=== PATIENT | female | born 1950 | race Caucasian/White ===

== ENCOUNTER → 2021-11-26 | Outpatient (CLI) | payer MEDICARE, SELFPAY ==
[2021-11-26 14:36] LABS: Erythrocyte Sedimentation Rate 24 mm/hr (0-30)
[2021-11-26 14:38] LABS: Absolute Lymphocyte Count 2.96 X10^3/uL (0.83-4.51); Absolute Neutrophil Count 5.4 X10^3/uL (2.0-7.7); Eosinophil# 0.33 X10^3/uL; Eosinophils% 3.4 % (0-5); Hematocrit 40.5 % (37-47); Hemoglobin 13.6 g/dL (12.0-15.0); Lymphocyte # 2.96 X10^3/ul (0.83-4.51); Lymphocyte % 30.8 % (19-41); Mean Corp Hgb Conc 33.6 g/dL (32-36); Mean Corpuscular Hgb 28.6 pg (27.0-32.0); Mean Corpuscular Volume 85.1 fL (81-99); Mean Platelet Vol. 12.3 fl (6.2-12.0); Monocyte# 0.77 X10^3/uL; NRBC Flagged by Analyzer 0 % (0-5); Neutrophil # 5.42 X10^3/uL (2.7-7.7); Neutrophil % 56.6 % (47-70); Platelet Count 249 K/mm3 (150-450); RBC Distribution Width CV 14.8 % (11.6-14.6); Red Blood Count 4.76 M/mm3 (4.2-5.4); White Blood Count 9.6 K/mm3 (4.4-11.0)
[2021-11-26 15:12] LABS: AST(SGOT) 22 U/L (15-37); Alanine Aminotransfer ALT/SGPT 31 U/L (13-56); Albumin, Serum 3.9 g/dL (3.2-5.0); Alkaline Phosphatase 107 U/L (45-117); Anion Gap 5 (5-15); BUN 16 mg/dL (7-18); BUN/Creat Ratio 20.5 RATIO (10-20); CRP < 2.90 mg/L (0.0-3.0); Calcium,Total 9.4 mg/dL (8.5-10.1); Chloride 107 mmol/L (98-107); Creatinine, Serum 0.78 mg/dL (0.55-1.02); EST Glomerular Filtration Rate 78 mL/min (>60); Est Glom Filt Rate - Afr Amer 94 mL/min (>60); Free T3 2.9 pg/mL (2.18-3.98); Glucose 106 mg/dL (74-106); LDH 192 U/L (84-246); Potassium 3.2 mmol/L (3.5-5.1); Protein, Total 7.9 g/dL (6.4-8.2); Sodium Level 141 mmol/L (136-145)
[2021-11-29 13:07] LABS: Anti-Centromere B Ab <0.2 AI (0.0-0.9); Anti-Chromatin <0.2 AI (0.0-0.9); Anti-Jo <0.2 AI (0.0-0.9); Anti-Scleroderma-70 AB <0.2 AI (0.0-0.9); RNP Ab <0.2 AI (0.0-0.9); SJOGREN'S Anti-SS-A test < 0.2 AI (0.0-0.9); SJOGREN'S Anti-SS-B test < 0.2 AI (0.0-0.9); Smith Ab <0.2 AI (0.0-0.9)
[2021-11-30 08:04] LABS: Anti-dsDNA Ab <1 IU/mL (0-9)
[2021-11-30 09:08] LABS: Endomysial Antibody IgA Negative (Negative)
[2021-11-30 09:21] LABS: Immunoglobulin A 210 mg/dL (87-352); t-Transglutaminase IgA <2 U/mL (0-3)
[2021-12-02 18:07] LABS: Albumin 4.2 g/dL (2.9-4.4); Alpha-1-Globulins 0.2 g/dL (0.0-0.4); Alpha-2-Globulins 0.9 g/dL (0.4-1.0); Cytoplasmic Ab (C-ANCA) <1:20 titer (Neg:<1:20); Gamma Globulin 0.8 g/dL (0.4-1.8); Immunoglobulin A 205 mg/dL (87-352); Immunoglobulin E 7 IU/mL (6-495); Immunoglobulin G 810 mg/dL (586-1602); Immunoglobulin M 142 mg/dL (26-217); PROEL- TOTAL PROTEIN 7.3 g/dL (6.0-8.5)
[2021-12-03 17:50] LABS: Perinuclear Ab (P-ANCA) <1:20 titer (Neg:<1:20)
== END | disposition home or self-care (01) ==
PROVIDERS: PCP Student in an Organized Health Care Education/Training Program; Referring Provider Internal Medicine Gastroenterology; Visit Provider Internal Medicine Gastroenterology
DX: R05.9 Cough, unspecified (principal)
CPT/HCPCS: 36415; 80053; 82784; 82785; 83516; 83615; 84165; 84481; 85025; 85652; 86140; 86225; 86235; 86255; 86256; 86334

== ENCOUNTER 2021-12-09 09:54 | Day surgery (SDC) | payer MEDICARE, SELFPAY ==
[2021-12-09] VITALS (8 sets, daily range): BP systolic 99–123; BP diastolic 56–66; PULSE 67–76; RESP 16–18; TEMP 36.1–36.6; O2SAT 92–96; BMI 31.8
--- NOTE | 2021-12-09 10:12 | HP.PCM_ITS ---
History and Physical Date of Admission: 12/09/21 71 F who presents to the office today for Initial consult. Susannah established with this clinic 11.26.21 with referral from ENT. She was being seen for a usually dry, sometimes productive cough with hoarseness, hiatal hernia and a history of reflux. Susannah views the cough as most troublesome to her with cause of hernia and popped a rib. She was hospitalized for COVID and did not have any coughing; when she returned home she began coughing. PFT cannot be completed r/t cough. 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 Reports environmental allergy testing with mild response to horses only. Medication attempted include inhalers, nebulizer, GERD medications ?I?ve been on everything?. Currently taking protonix 40mg QD and famotidine 40mg QD. PMH asthma, COPD, history of smoking for 20years quit 25years prior, COVID infection. Undergoes CT of chest for cancer screening every other year. Esophagram air contrast 12.17.05 at [place] noted prominent crichopharyneus; small sliding hiatal hernia without reflux/esophagitis; scattered tertiary waves not hindering barium transit. EGD in the last two years with only reported diagnosis of hiatal hernia. Colonoscopy performed 3-4 years prior and she reports it was normal. Laryngoscopy 09.01.21 by ENT without abnormality of larynx or pharynx. ROS Const Constitutional: No anorexia, fatigue, fever(s), weight change or sleep problems Eyes Eyes: No change in vision ENT ENT: No abnormal hearing, difficulty swallowing, mouth lesions, tongue swelling or throat swelling Resp Respiratory: No cough or shortness of breath Cardio Cardiology: No chest pain at rest, chest pain with exertion, shortness of breath or dyspnea on exertion Gastro GI: No difficulty swallowing Genitourinary-Female: No difficulty urinating or burning urination Musc Musculoskeletal: No joint pain, joint swelling, muscle weakness or decreased muscle mass Skin Skin: No hair loss in leg, yellowing of the eye, itchy eyes, rash, skin ulcer or skin swelling Neuro Neurology: No abnormal hearing, abnormal movements, confusion, unsteady gait/balance or memory loss Psych Psychiatric: No anxiety, No confusion and No memory loss Endo Endocrine: No fatigue or weight change Aller/Imm Allergy/Immunologic: No itchy eyes, throat swelling or tongue swelling Don/Lymp Hematologic/Lymphatic: No easy bleeding, easy bruising or enlarged lymph nodes Exam Const General: cooperative and comfortable Nutritional Appearance: average body habitus and well nourished [facility] Head: normal to inspection Ears: hearing grossly normal bilaterally Nose: external nose normal Face and sinus: normal facial exam Mouth: oral mucosae normal Throat: posterior oropharynx normal Eyes General: appearance normal, both eyes and all related structures Neck Neck: normal visual inspection Chest Chest palpation & inspection: normal inspection of the chest and normal palpation of entire chest wall Resp Effort & Inspection: normal respiratory effort Auscultation: Bilateral: Clear to Auscultation Cardio Palpation: normal PMI Rate: regular rate Rhythm: regular rhythm GI Inspection: normal to inspection Auscultation: normal bowel sounds Percussion: normal to percussion Palpation: no hepatosplenomegaly Skin General: no rashes or lesions noted Neuro General: patient alert Extrem General: normal to inspection Psych Affect: normal affect Assessment and Plan Assessment and Plan (1) Cough: ?Status:?Chronic ?Plan: Differential diagnosis for chronic cough would be a psychogenic cough, silent GERD, cricopharyngeal muscle dystonia.? We will get an EGD with Delgadillo placement and? Manometry.? We will also get biochemical work-up to see if she has any other autoimmune diseases such as scleroderma or Sjogren's syndrome.? She was explained alternatives, risk, benefits including not withstanding bleeding, infection, sepsis, perforation, need for emergent surgery .? She will have an ASA 1. ? ? ? Orders: Orders Comprehensive Metabolic Profil Today R05.9 - Cough, unspecified ? CRP Today R05.9 - Cough, unspecified ? Free T3 Today R05.9 - Cough, unspecified ? LDH Today R05.9 - Cough, unspecified ? CBC W/Diff, Automated Today R05.9 - Cough, unspecified ? Erythrocyte Sed Rate Today R05.9 - Cough, unspecified ? ROSA M Comprehensive Panel Today R05.9 - Cough, unspecified ? ANCA Today R05.9 - Cough, unspecified ? Celiac Disease Profile Today R05.9 - Cough, unspecified ? Immunoglobulins G/A/M/E Today R05.9 - Cough, unspecified ? GIANNI + Protein Elect, Serum Today R05.9 - Cough, unspecified ? I have re-examined the patient. There are no clinical changes since date of exam.
[2021-12-09] MEDS: Lidocaine Jelly 2% 20 ML Syringe (URO-JET) 1 APPLIC (10:42)
[2021-12-09] MEDS: Lactated Ringers 1,000 ML 15 ML IV (11:25)
--- NOTE | 2021-12-09 12:15 | EGD_PTH ---
PATIENT: ALYSSA DOUGLAS LOC: [facility] U#:[id number] AGE/SX: 71/F ROOM: RE12/09/[address]: Dr. Contreras Torres DO : 1950 BED: DIS: 12/09/2021 SPEC #: [id number] RECD: 12/09/21 12:35 STATUS: MARC BLANQUITA #: [id number] CESARIO: 12/09/21 12:[address]: Contreras Torres DEPT: SURGICAL PATHOLOGY RECD BY: Charley Qiu ENTERED: 12/09/21 12:48 SP TYPE: EGD BIOPSY KOMAL DR: Dr. Lali Russell DO Tissues: Esophagus, NOS Procedures: Special Stain Group II Surgery Specimen Level IV Alcian Blue/PAS (control) HEADER OPERATION: EGD ? PH probe ([facility] [place]) PRE-OP DIAGNOSIS: Cough TISSUE SUBMITTED: Distal esophagus biopsy MICROSCOPIC DIAGNOSIS Distal esophagus, biopsy: Fragments of gastric mucosa with chronic inflammation. Intestinal metaplasia (goblet cell metaplasia) not identified. See comment. ARASH:bello 12/10/2021 COMMENT Alcian blue/PAS stain with matched control is used in the evaluation of the specimen. MICROSCOPIC DESCRIPTION Slides are reviewed. GROSS DESCRIPTION Received in fixative is one container labeled with the patient's name and designated distal esophagus. The specimen consists of two irregular fragments of light gallardo soft tissue that in aggregate measure 0.6 x 0.3 x 0.1 cm. The specimen is totally submitted in one cassette. / ARASH:bello 12/09/2021 TC:3 CPT: 28429, 31891
--- NOTE | 2021-12-09 12:18 | OP.EGD_ITS ---
Patient Name: Susannah Reaves Procedure Date: 12/09/2021 11:53 AM Date of : 1950 Age: 71 Procedure: Upper GI endoscopy Indications: Suspected non-erosive esophageal reflux Providers: Contreras Torres DO Medicines: Monitored Anesthesia Care Patient Profile: This is a 71 year old female. Refer to note in patient chart for documentation of history and physical. Patient has symptoms of chronic cough. Complications: No immediate complications. Procedure: Pre-Anesthesia Assessment: - Prior to the procedure, a History and Physical was performed, and patient medications and allergies were reviewed. The patient is competent. The risks and benefits of the procedure and the sedation options and risks were discussed with the patient. All questions were answered and informed consent was obtained. Patient identification and proposed procedure were verified by the physician in the pre-procedure area. Mental Status Examination: alert and oriented. Airway Examination: normal oropharyngeal airway and neck mobility. Respiratory Examination: clear to auscultation. CV Examination: normal. Prophylactic Antibiotics: The patient does not require prophylactic antibiotics. Prior Anticoagulants: The patient has taken no previous anticoagulant or antiplatelet agents. ASA Grade Assessment: II - A patient with mild systemic disease. After reviewing the risks and benefits, the patient was deemed in satisfactory condition to undergo the procedure. The anesthesia plan was to use moderate sedation / analgesia (conscious sedation). Immediately prior to administration of medications, the patient was re-assessed for adequacy to receive sedatives. The heart rate, respiratory rate, oxygen saturations, blood pressure, adequacy of pulmonary ventilation, and response to care were monitored throughout the procedure. The physical status of the patient was re-assessed after the procedure. After obtaining informed consent, the endoscope was passed under direct vision. Throughout the procedure, the patient's blood pressure, pulse, and oxygen saturations were monitored continuously. The Endoscope was introduced through the mouth, and advanced to the second part of duodenum. The upper GI endoscopy was accomplished without difficulty. The patient tolerated the procedure well. Scope In: 12:03:58 PM Scope Out: 12:11:32 PM Total Procedure Duration Time 0 hours 7 minutes 34 seconds Findings: The examined esophagus was normal. The Z-line was irregular and was found 40 cm from the incisors. Biopsies were taken with a cold forceps for histology. Verification of patient identification for the specimen was done. The [employer] capsule with delivery system was introduced through the mouth and advanced into the esophagus, such that the VALLECILLO pH capsule was positioned 40 cm from the incisors, which was 6 cm proximal to the GE junction. Suction was applied to the well of the VALLECILLO pH capsule to suck in the adjacent mucosa of the esophagus using the external vacuum pump set at a minimum vacuum pressure of 550 mmHg for 30 seconds. The VALLECILLO pH capsule was then deployed by depressing the plunger on top of the handle to advance the locking pin into the mucosa, thereby attaching the capsule to the esophagus. The plunger was then rotated a quarter turn clockwise to release the capsule from the delivery system. The delivery system was then withdrawn. Endoscopy was utilized for probe placement and diagnostic evaluation. A small hiatal hernia was present. The stomach was normal. No gross lesions were noted in the first portion of the duodenum. Impression: - Normal esophagus. - Z-line irregular, 40 cm from the incisors. Biopsied. - Small hiatal hernia. - Normal stomach. - No gross lesions in the first portion of the duodenum. - The VALLECILLO pH capsule was positioned 40 cm from the incisors, which was 6 cm proximal to the GE junction. Recommendation: - Written discharge instructions were provided to the patient. - The signs and symptoms of potential delayed complications were discussed with the patient. - Patient has a contact number available for emergencies. - Return to normal activities tomorrow. - Resume previous diet. - Continue present medications. - Await pathology results. - Repeat upper endoscopy in 1 year for surveillance. Procedure Code(s): --- Professional --- 06613, Esophagogastroduodenoscopy, flexible, transoral; with biopsy, single or multiple CPT copyright 2017 [employer]. All rights reserved. The codes documented in this report are preliminary and upon leather etcher review may be revised to meet current compliance requirements. Contreras Torres DO 12/09/2021 12:18:04 PM This report has been signed electronically. Number of Addenda: 1 Note Initiated On: 12/09/2021 11:53 AM Addendum Number: 1 Addendum Date: 01/14/2022 6:18:52 AM MAC was used as sedation for this procedure. Contreras Torres DO 01/14/2022 6:18:55 AM This report has been signed electronically.
--- NOTE | 2021-12-09 12:18 | OP.CCLET_ITS ---
01/14/2022 Lali Russell Do Re : Upper GI endoscopy procedure for Susannah Reaves Dear Dr. Russell This procedure was performed on December. My impressions and recommendations are as follows: Impressions : - Normal esophagus. - Z-line irregular, 40 cm from the incisors. Biopsied. - Small hiatal hernia. - Normal stomach. - No gross lesions in the first portion of the duodenum. - The VALLECILLO pH capsule was positioned 40 cm from the incisors, which was 6 cm proximal to the GE junction. Recommendations : - Written discharge instructions were provided to the patient. - The signs and symptoms of potential delayed complications were discussed with the patient. - Patient has a contact number available for emergencies. - Return to normal activities tomorrow. - Resume previous diet. - Continue present medications. - Await pathology results. - Repeat upper endoscopy in 1 year for surveillance. My findings are described in the full procedure note, which is enclosed. If I can be of further assistance, please feel free to contact me at . Sincerely, Contreras Torres, 12/09/2021 12:18:04 PM This report has been signed electronically.
--- NOTE | 2022-01-04 08:44 | PCM.HP.BLA ---
History and Physical Date of Admission: 12/09/21 Study: 48-hour?Delgadillo?pH capsule was placed on esophagus during EGD on 12/09/21 ? Indications for?Delgadillo?pH Study: cough ? Study Findings?? ? 48-hour overview: no significant acid reflux ? Using data from the worst of the two days, acid exposure time is 1.5%.?Percent acid exposure time?is the single parameter which has been shown to best correlate with endoscopic damage. Normal is <4.4% on the worst day, therefore this result is?normal.? ? The?DeMeester Score?(normal is <14.72) on the worst of the two days is 5.5 which is?normal.?The DeMeester Score is a method of adding weights to six common pH measurement parameters, and presenting esophageal acid exposure data as a cumulative score.? ? Symptom Index (SI)?>50% is significant (it indicates that >50% of the observed symptoms were associated with reflux).? In this study, the SI is 0% which?is not significant. ? Symptom Association Probability (SAP)?helps to determine if there is a true correlation between symptoms and reflux. SAP >95% indicates a likely correlation.? In this study, the SAP is 0% which does not indicate a true correlation.? ? Interpretation ? Normal study Charges/Coding Procedures Gastroenterology CF Procedures [id number]: [id number] Gastroesophageal reflux test
== END 2021-12-09 13:13 | disposition home or self-care (01) ==
LOC: EN 09:56 → AC 09:58
PROVIDERS: PCP Student in an Organized Health Care Education/Training Program; Referring Provider Student in an Organized Health Care Education/Training Program; Visit Provider Internal Medicine Gastroenterology
PROC: F00ZJWZ Instrumental Swallowing and Oral Function Assessment using Swallowing Equipment (ICD-10-PCS; CPT 43235; principal; 2021-12-09 10:55)
PROC: (CPT 43239; principal; 2021-12-09 12:10)
PROC: F00ZJWZ Instrumental Swallowing and Oral Function Assessment using Swallowing Equipment (ICD-10-PCS; CPT 43235; 2021-12-09 12:10)
DX: K21.00 Gastro-esophageal reflux disease with esophagitis, without bleeding (principal); K44.9 Diaphragmatic hernia without obstruction or gangrene; F41.9 Anxiety disorder, unspecified; F32.A Depression, unspecified; E78.00 Pure hypercholesterolemia, unspecified; I10 Essential (primary) hypertension; Z79.899 Other long term (current) drug therapy; Z86.718 Personal history of other venous thrombosis and embolism; Z86.16 Personal history of COVID-19
CPT/HCPCS: 43239; 88305; 88313; J7120; J2405